=== PATIENT | female | born 1955 | race American Indian/Alaskan Native ===

== ENCOUNTER 2018-09-28 19:41 | Inpatient (IN) | payer MEDICARE ==
[2018-09-28 21:24] LABS: Basophils # (Auto) 0.1 K/mm3 (0.0-0.1); Basophils % (Auto) 0.8 % (0.0-1.8); Eosinophils # (Auto) 0.1 K/mm3 (0.0-0.4); Eosinophils % (Auto) 0.7 % (0.0-4.3); Lymphocytes # (Auto) 1.1 K/mm3 (1.2-5.4); Lymphocytes % (Auto) 8.3 % (13.4-35.0); Mean Corpuscular HGB Conc 30 % (30-34); Mean Corpuscular Volume 90 fl (79-97); Monocytes # (Auto) 0.7 K/mm3 (0.0-0.8); Monocytes % (Auto) 5.4 % (0.0-7.3); Platelet Count 346 K/mm3 (140-440); Red Blood Count 4.13 M/mm3 (3.65-5.03); Red Cell Distribution Width 17.5 % (13.2-15.2)
[2018-09-28 21:25] LABS: Hematocrit 37.1 % (30.3-42.9)
--- NOTE | 2018-09-28 21:30 | Emergency Department Report ---
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 Patient does take Eliquis for afib. She also received her dialysis yes terday as scheduled. She denies any pain, epistaxis, melena, hematochezia, or dental trauma. Patient states she has had a cough 1 month. No fever reported. patient's doctors are affiliated with [facility]. - Related Data Previous Rx's Medication Instructions Recorded Last Taken Type Albuterol Sulfate [Proair 90 mcg IH Q4HR PRN #2 [email or web address] 03/23/16 Unknown Rx Respiclick] ALBUTEROL NEB's [Proventil 0.083% 2.5 mg IH Q4HRT PRN #30 nebu 10/23/16 Unknown Rx NEBS] Calcium Carbonate [Tums 500MG CHEW] 1,000 mg PO QDAY #60 tablet 10/23/16 Unknown Rx Pantoprazole [Protonix TAB] 40 mg PO QDAY #30 tablet 10/23/16 Unknown Rx oxyCODONE /ACETAMINOPHEN [Percocet 1 tab PO Q4H PRN #30 tablet 10/23/16 Unknown Rx 5/325 mg] Allergies Allergy/AdvReac Type Severity Reaction Status Date / Time Penicillins Allergy Unknown Verified 09/28/18 19:56 ED Dental HPI - General Chief complaint: Dental/Oral Stated complaint: BLEEDING FROM MOUTH Time Seen by Provider: 09/28/18 21:02 Source: EMS Mode of arrival: Stretcher Limitations: Physical Limitation - Related Data Previous Rx's Medication Instructions Recorded Last Taken Type Albuterol Sulfate [Proair 90 mcg IH Q4HR PRN #2 aer.[email or web address] 03/23/16 Unknown Rx Respiclick] ALBUTEROL NEB's [Proventil 0.083% 2.5 mg IH Q4HRT PRN #30 nebu 10/23/16 Unknown Rx NEBS] Calcium Carbonate [Tums 500MG CHEW] 1,000 mg PO QDAY #60 tablet 10/23/16 Unknown Rx Pantoprazole [Protonix TAB] 40 mg PO QDAY #30 tablet 10/23/16 Unknown Rx oxyCODONE /ACETAMINOPHEN [Percocet 1 tab PO Q4H PRN #30 tablet 10/23/16 Unknown Rx 5/325 mg] Allergies Allergy/AdvReac Type Severity Reaction Status Date / Time Penicillins Allergy Unknown Verified 09/28/18 19:56 ED Review of Systems ROS: Stated complaint: BLEEDING FROM MOUTH Other details as noted in HPI Comment: All other systems reviewed and negative ED Past Medical Hx - Past Medical History Hx Hypertension: Yes Hx GERD: Yes Hx Renal Disease: Yes (DIALYSIS M W ) Hx Arthritis: Yes Hx Asthma: Yes Additional medical history: Home oxygen use - Surgical History Past Surgical History?: Yes Additional Surgical History: PERMA CATH LEFT THIGH - Social History Smoking Status: Never Smoker Substance Use Type: None - Medications Home Medications: Home Medications Medication Instructions Recorded Confirmed Last Taken Type Albuterol Sulfate [Proair 90 mcg IH Q4HR PRN #2 aer.[email or web address] 03/23/16 Unknown Rx Respiclick] ALBUTEROL NEB's [Proventil 0.083% 2.5 mg IH Q4HRT PRN #30 nebu 10/23/16 Unknown Rx NEBS] Calcium Carbonate [Tums 500MG CHEW] 1,000 mg PO QDAY #60 tablet 10/23/16 Unknown Rx Pantoprazole [Protonix TAB] 40 mg PO QDAY #30 tablet 10/23/16 Unknown Rx oxyCODONE /ACETAMINOPHEN [Percocet 1 tab PO Q4H PRN #30 tablet 10/23/16 Unknown Rx 5/325 mg] ED Physical Exam - General Limitations: Physical Limitation - Other Other exam information: General: No limitations, patient is alert in no acute distress Head exam: Atraumatic, normocephalic Eyes exam: Normal appearance, pupils equal reactive to light, extraocular movements intact ENT: Moist mucous membrane, patient does not have any maxillary teeth. Blood is noted on the tongue however, No gum laceration or tongue laceration noted. No bleeding to the hard or soft palate or posterior pharynx noted. No epistaxis. Neck exam: Normal inspection Respiratory exam: Clear to auscultation bilateral, no wheezes, rales, crackles Cardiovascular: Normal rate and rhythm Abdomen: Soft, nondistended, and nontender, with normal bowel sounds, no rebound, or guarding Extremity: Full range of motion normal inspection no deformity Neurologic: Alert, oriented x3, cranial nerves intact Psychiatric: normal affect, normal mood Skin: Warm, dry, intact ED Course Vital Signs 09/28/18 09/28/18 20:00 20:12 Temperature 98.9 F Pulse Rate 90 Respiratory 20 Rate Blood Pressure 115/95 [Left] O2 Sat by Pulse 91 92 Oximetry - Reevaluation(s) Reevaluation #1: 09/28/18 22:24 Soft tissue neck x-ray did not reveal a foreign body. I went to the bedside to reexamine patient. She has braided extensions and denied by rhiannon pin usage. When I examined her hair I found the rhiannon pin attached to one of her symone. I believe that this was the rhiannon pin image on initial chest x-ray and soft tissue neck x-ray does not show a foreign body. Patient reports that her oral pharyngeal bleeding has stopped. 09/28/18 23:26 respiratory precautions and isolation recommended until tb can be ruled out. pt tx with po azithromycini prior to offcial cxr report. Blood cx and levaquin ordered after read by radiologist. ED Medical Decision Making - Lab Data Result diagrams: 09/28/18 21:12 09/28/18 21:12 Lab Results 09/28/18 09/28/18 09/28/18 Range/Units 21:12 21:12 21:12 WBC 13.3 H (4.5-11.0) K/mm3 RBC 4.13 (3.65-5.03) M/mm3 Hgb 11.0 (10.1-14.3) gm/dl Hct 37.1 (30.3-42.9) % MCV 90 (79-97) fl MCH 27 L (28-32) pg MCHC 30 (30-34) % RDW 17.5 H (13.2-15.2) % Plt Count 346 (140-440) K/mm3 Lymph % (Auto) 8.3 L (13.4-35.0) % [place] % (Auto) 5.4 (0.0-7.3) % Eos % (Auto) 0.7 (0.0-4.3) % Baso % (Auto) 0.8 (0.0-1.8) % Lymph # 1.1 L (1.2-5.4) K/mm3 [place] # 0.7 (0.0-0.8) K/mm3 Eos # 0.1 (0.0-0.4) K/mm3 Baso # 0.1 (0.0-0.1) K/mm3 Seg Neutrophils % 84.8 H (40.0-70.0) % Seg Neutrophils # 11.2 H (1.8-7.7) K/mm3 PT 15.6 H (12.2-14.9) Sec. INR 1.17 H (0.87-1.13) APTT 36.5 (24.2-36.6) Sec. Sodium 134 L (137-145) mmol/L Potassium 3.3 L (3.6-5.0) mmol/L Chloride 94.0 L (98-107) mmol/L Carbon Dioxide 22 (22-30) mmol/L Anion Gap 21 mmol/L BUN 34 H (7-17) mg/dL Creatinine 6.6 H (0.7-1.2) mg/dL Estimated GFR 8 ml/min BUN/Creatinine Ratio 5 % Glucose 212 H (65-100) mg/dL Calcium 9.4 (8.4-10.2) mg/dL - Radiology Data Radiology results: report reviewed PROCEDURE: XR CHEST 1V AP TECHNIQUE: Chest radiograph single view. HISTORY: cough, dialysis pt COMPARISONS: 10/17/2016 . FINDINGS: Heart: Normal. Mediastinum/Vessels: Mildly congested. Lungs/Pleural space: Patchy left lower lobe and left upper lobe infiltrate. Lesser right upper lobe infiltrate. Patient is rotated. Bony thorax: No acute osseous abnormality. Life support devices: Right subclavian and axillary arterial stent.. IMPRESSION: Suboptimal positioning and exposure. Diffuse left-sided infiltrate. Lesser right-sided infiltrate. Patient is rotated. Right subclavian and axillary arterial stent. - Medical Decision Making plan to admit for b/l pneumonia. hospitalist informed oral bleeding has resolved tb precautions - Differential Diagnosis coagulopathy, intraoral lesion/bleeding, fb Critical Care Time: No Critical care attestation.: If time is entered above; I have spent that time in minutes in the direct care of this critically ill patient, excluding procedure time. ED Disposition Clinical Impression: Pneumonia, Bleeding from mouth, ESRD on dialysis, Anticoagulant long-term use, HTN (hypertension), On home oxygen therapy Disposition: OP ADMIT IP TO THIS HOSP Is pt being admited?: Yes Condition: Stable Time of Disposition: 23:26 (DR Worrell/hosp)
[2018-09-28 21:34] LABS: INR 1.17 (0.87-1.13)
[2018-09-28 21:35] LABS: Partial Thromboplastin Time 36.5 Sec. (24.2-36.6)
[2018-09-28 21:44] LABS: Calcium 9.4 mg/dL (8.4-10.2)
[2018-09-28] MEDS ORDERED: TESSALON PERLES PO ONE (22:24)
[2018-09-28] MEDS ORDERED: ZITHROMAX PO ONE (22:24)
--- NOTE | 2018-09-28 23:07 | XRay Report ---
PROCEDURE: XR CHEST 1V AP TECHNIQUE: Chest radiograph single view. HISTORY: cough, dialysis pt COMPARISONS: 10/17/2016 . FINDINGS: Heart: Normal. Mediastinum/Vessels: Mildly congested. Lungs/Pleural space: Patchy left lower lobe and left upper lobe infiltrate. Lesser right upper lobe infiltrate. Patient is rotated. Bony thorax: No acute osseous abnormality. Life support devices: Right subclavian and axillary arterial stent.. IMPRESSION: Suboptimal positioning and exposure. Diffuse left-sided infiltrate. Lesser right-sided infiltrate. Patient is rotated. Right subclavian and axillary arterial stent. This document is electronically signed by Alia Raya MD., Sep 28 2018 11:06:06 PM ET
[2018-09-28] MEDS ORDERED: LEVAQUIN 750MG/150ML 750 MG/150 ML BAG IV ONE (23:18)
[2018-09-29] MEDS ORDERED: MILK OF MAGNESIA PO PRN (00:02)
[2018-09-29] MEDS ORDERED: ZOFRAN IV PRN (00:02)
[2018-09-29] MEDS ORDERED: TYLENOL PO PRN (00:02)
[2018-09-29] MEDS ORDERED: SODIUM CHLORIDE FLUSH SYRINGE 10 ML IV PRN (00:02)
--- NOTE | 2018-09-29 00:14 | XRay Report ---
PROCEDURE: XR NECK SOFT TISSUE TECHNIQUE: Soft tissue neck radiographs, 2 views, including AP and lateral. HISTORY: blood in mouth ? FB on cxr COMPARISONS: None . FINDINGS: Bone mineralization: Normal . Alignment: Normal . Soft tissues: Epiglottis and hypopharyngeal soft tissues normal . Foreign bodies: None . IMPRESSION: There is no airway compromise. The trachea is midline and patent. The epiglottis is unre markable. No foreign body is identified. . This document is electronically signed by Killian York MD., Sep 29 2018 12:12:16 AM ET
--- NOTE | 2018-09-29 00:14 | History and Physical Report ---
<NANCY VELEZ - Last Filed: 09/29/18 04:31> History of Present Illness Date of examination: 09/28/18 Date of admission: 09/28/2018 Chief complaint: Cough 1 month History of present illness: Patient is a 62 obese female with PMHx of hypertension, ESRD on HD (MWF), history of DVT (on Eliquis), COPD (home oxygen dependent 2-2.5 L), who presents to the ER with complaints of cough 1 month. Patient's states that she had been coughing for a month, it is a productive cough with white phlegm. Patient states she woke up this morning with blood in her mouth, it is a moderate amount, she denied any tooth trauma, denies any sore throat. Patient says that she has been having low-grade fever during dialysis, her temperature has been 99 .3% F. She denies pain, she denies ill contact, denies epistaxis, denies melena, edema hematochezia, patient denies any trauma. A chest x-ray was done in the ER which showed diffuse bilateral infiltrate left worse than right. Patient is admitted, she was placed in droplet and airborn precaution to r/o TB and treatment for CAP protocol was initiated. Past History Past Medical History: cancer, diabetes, hypertension, hyperlipidemia, other (obesity) Past Surgical History: No surgical history Social history: no significant social history Family history: no significant family history Medications and Allergies Allergies Allergy/AdvReac Type Severity Reaction Status Date / Time Penicillins Allergy Unknown Verified 09/28/18 19:56 Home Medications Medication Instructions Recorded Confirmed Last Taken Type Apixaban [Eliquis] 1 tab PO Q12HR 09/29/18 09/29/18 Unknown History Ascorbic Acid [Vitamin C] 500 mg PO QDAY 09/29/18 09/29/18 Unknown History Aspirin 325 mg PO QDAY 09/29/18 09/29/18 Unknown History Diclofenac Sodium 75 mg PO BID 09/29/18 09/29/18 Unknown History Midodrine [Proamatine] 10 mg PO TID 09/29/18 09/29/18 Unknown History Multivit with Calcium,Iron,Min 1 each PO DAILY 09/29/18 09/29/18 Unknown History [One Daily Women's] [place]-3/Dha/Epa/Fish Oil [[place] 3 1 tab PO DAILY 09/29/18 09/29/18 Unknown History 500 Softgel] Sevelamer Carbonate [Renvela] 2,400 mg PO TIDWM 09/29/18 09/29/18 Unknown History guaiFENesin/DEXTROMETHORPHAN 118 ml PO BID PRN 09/29/18 09/29/18 Unknown History [Children's Mucinex Cough Liq] Active Meds: Active Medications Acetaminophen (Tylenol) 650 mg PO Q4H PRN PRN Reason: Pain MILD(1-3)/Fever >100.5/ALMEIDA Famotidine (Pepcid) 20 mg IV BID DINO Heparin Sodium (Porcine) (Heparin) 5,000 unit SUB-Q Q8HR DINO Levofloxacin/Dextrose (Levaquin 750mg/150ml) 750 mg in 150 mls @ 100 mls/hr IV ONCE ONE Stop: 09/29/18 00:47 Azithromycin 500 mg/ Sodium (Chloride) 250 mls @ 250 mls/hr IV Q24HR DINO Levofloxacin/Dextrose (Levaquin 750mg/150ml) 750 mg in 150 mls @ 100 mls/hr IV Q24HR DINO; Protocol Magnesium Hydroxide (Milk Of Magnesia) 30 ml PO Q4H PRN PRN Reason: Constipation Ondansetron HCl (Zofran) 4 mg IV Q8H PRN PRN Reason: Nausea And Vomiting Sodium Chloride (Sodium Chloride Flush Syringe 10 Ml) 10 ml IV BID DINO Sodium Chloride (Sodium Chloride Flush Syringe 10 Ml) 10 ml IV PRN PRN PRN Reason: LINE FLUSH Review of Systems Cardiovascular: chest pain Respiratory: cough Musculoskeletal: muscle cramps Exam - Constitutional Vitals: Temp Pulse Resp BP Pulse Ox 98.9 F 90 20 115/95 92 09/28/18 20:00 09/28/18 20:00 09/28/18 20:00 09/28/18 20:00 09/28/18 20:12 General appearance: Present: no acute distress - EENT Eyes: Present: EOM intact ENT: hearing intact - Neck Neck: Present: normal ROM - Respiratory Respiratory effort: normal Respiratory: bilateral: CTA - Cardiovascular Rhythm: regular Heart Sounds: Present: S1 & S2 - Extremities Extremities: No edema Peripheral Pulses: within normal limits - Abdominal General gastrointestinal: Present: soft, non-tender Female genitourinary: Present: deferred - Rectal Rectal Exam: deferred - Integumentary Integumentary: Present: clear, warm, dry - Musculoskeletal Musculoskeletal: strength equal bilaterally - Psychiatric Psychiatric: appropriate mood/affect - Neurologic Neurologic: moves all extremities Results - Labs CBC & Chem 7: 09/28/18 21:12 09/28/18 21:12 Labs: Laboratory Last Values WBC 13.3 K/mm3 (4.5-11.0) H 09/28/18 21:12 RBC 4.13 M/mm3 (3.65-5.03) 09/28/18 21:12 Hgb 11.0 gm/dl (10.1-14.3) 09/28/18 21:12 Hct 37.1 % (30.3-42.9) 09/28/18 21:12 MCV 90 fl (79-97) 09/28/18 21:12 MCH 27 pg (28-32) L 09/28/18 21:12 MCHC 30 % (30-34) 09/28/18 21:12 RDW 17.5 % (13.2-15.2) H 09/28/18 21:12 Plt Count 346 K/mm3 (140-440) 09/28/18 21:12 Lymph % (Auto) 8.3 % (13.4-35.0) L 09/28/18 21:12 [place] % (Auto) 5.4 % (0.0-7.3) 09/28/18 21:12 Eos % (Auto) 0.7 % (0.0-4.3) 09/28/18 21:12 Baso % (Auto) 0.8 % (0.0-1.8) 09/28/18 21:12 Lymph # 1.1 K/mm3 (1.2-5.4) L 09/28/18 21:12 [place] # 0.7 K/mm3 (0.0-0.8) 09/28/18 21:12 Eos # 0.1 K/mm3 (0.0-0.4) 09/28/18 21:12 Baso # 0.1 K/mm3 (0.0-0.1) 09/28/18 21:12 Seg Neutrophils % 84.8 % (40.0-70.0) H 09/28/18 21:12 Seg Neutrophils # 11.2 K/mm3 (1.8-7.7) H 09/28/18 21:12 PT 15.6 Sec. (12.2-14.9) H 09/28/18 21:12 INR 1.17 (0.87-1.13) H 09/28/18 21:12 APTT 36.5 Sec. (24.2-36.6) 09/28/18 21:12 Sodium 134 mmol/L (137-145) L 09/28/18 21:12 Potassium 3.3 mmol/L (3.6-5.0) L 09/28/18 21:12 Chloride 94.0 mmol/L (98-107) L 09/28/18 21:12 Carbon Dioxide 22 mmol/L (22-30) 09/28/18 21:12 21 mmol/L 09/28/18 21:12 BUN 34 mg/dL (7-17) H 09/28/18 21:12 6.6 mg/dL (0.7-1.2) H 09/28/18 21:12 Estimated GFR 8 ml/min 09/28/18 21:12 5 % 09/28/18 21:12 Glucose 212 mg/dL (65-100) H 09/28/18 21:12 Calcium 9.4 mg/dL (8.4-10.2) 09/28/18 21:12 Assessment and Plan Assessment and plan: 1. Bilateral pneumonia (CAP) 2. Cough/Hemoptysis 3. History of DVT (is on adequate use) 4. ESRD on HD 5. History of hypertension 6. History of COPD/asthma (home O2 dependent) 7. History of arthritis (debilitating) 8. Hypokalemia 9. Morbid obesity 10. Debilitating/gait instability Plan. Patient is admitted for acute pneumonia Non-ICU pneumonia protocol initiated (Levaquin and Ceftrioxone) AFB culture 3 (to rule out TB) Droplet/airborn precaution Resume home meds Keep O2 at 2 L to keep sats greater than 93% Supportive care Tessalon PRN for cough Duonebs treatment Q6hrs for SOB Consult nephrology chief information officer for HD management No DVT prophylaxis (on Eliquis) Contraindication Mechanical VTE Prophylaxis: Contraindicated Plan of care discussed with patient/family: Yes <BRONWYN VALIENTE Last Filed: 09/30/18 03:15> History of Present Illness Date of admission: 09/28/18 23:47 Medications and Allergies Active Meds: Active Medications Acetaminophen (Tylenol) 650 mg PO Q4H PRN PRN Reason: Pain MILD(1-3)/Fever >100.5/ALMEIDA Albumin Human (Alburx 25% (Albumin)) 25 gm IV FLAVIA PRN PRN Reason: Hypotension Albuterol/Ipratropium (Duoneb *Not For Prn Use*) 1 ampul IH Q6HRT [facility] Last Admin: 09/30/18 01:47 Dose: 1 ampul Documented by: Benzonatate (Tessalon Perles) 200 mg PO Q8HR [facility] Last Admin: 09/29/18 23:46 Dose: 200 mg Documented by: Epoetin Eber (Procrit) 10,000 unit IV FLAVIA PRN PRN Reason: hemodialysis Last Admin: 09/29/18 16:12 Dose: 10,000 unit Documented by: Famotidine (Pepcid) 20 mg IV QAM [facility] Last Admin: 09/29/18 10:19 Dose: 20 mg Documented by: Heparin Sodium (Porcine) (Heparin) 5,000 unit SUB-Q Q8HR [facility] Last Admin: 09/29/18 23:46 Dose: 5,000 unit Documented by: Azithromycin 500 mg/ Sodium (Chloride) 250 mls @ 250 mls/hr IV Q24HR [facility] Last Admin: 09/29/18 17:27 Dose: 250 mls/hr Documented by: Levofloxacin/Dextrose (Levaquin 500mg/100ml) 500 mg in 100 mls @ 100 mls/hr IV Q48HR [facility] Last Admin: 09/29/18 10:19 Dose: 100 mls/hr Documented by: Sodium Chloride (Nacl 0.9%) 100 mls @ 999 mls/hr IV FLAVIA PRN PRN Reason: Hypotension Midodrine (Proamatine) 10 mg PO TID@0800,1200,1600 [facility] Last Admin: 09/29/18 17:13 Dose: 10 mg Documented by: Ondansetron HCl (Zofran) 4 mg IV Q8H PRN PRN Reason: Nausea And Vomiting Sodium Chloride (Sodium Chloride Flush Syringe 10 Ml) 10 ml IV BID DINO Last Admin: 09/29/18 23:47 Dose: 10 ml Documented by: Sodium Chloride (Sodium Chloride Flush Syringe 10 Ml) 10 ml IV PRN PRN PRN Reason: LINE FLUSH Exam - Constitutional Vitals: Temp Pulse Resp BP Pulse Ox 97.7 F 79 17 50/23 90 09/29/18 22:20 09/30/18 01:55 09/30/18 01:55 09/29/18 22:20 09/29/18 22:20 Results - Labs CBC & Chem 7: 09/28/18 21:12 09/28/18 21:12 Labs: Laboratory Last Values WBC 13.3 K/mm3 (4.5-11.0) H 09/28/18 21:12 RBC 4.13 M/mm3 (3.65-5.03) 09/28/18 21:12 Hgb 11.0 gm/dl (10.1-14.3) 09/28/18 21:12 Hct 37.1 % (30.3-42.9) 09/28/18 21:12 MCV 90 fl (79-97) 09/28/18 21:12 MCH 27 pg (28-32) L 09/28/18 21:12 MCHC 30 % (30-34) 09/28/18 21:12 RDW 17.5 % (13.2-15.2) H 09/28/18 21:12 Plt Count 346 K/mm3 (140-440) 09/28/18 21:12 Lymph % (Auto) 8.3 % (13.4-35.0) L 09/28/18 21:12 [place] % (Auto) 5.4 % (0.0-7.3) 09/28/18 21:12 Eos % (Auto) 0.7 % (0.0-4.3) 09/28/18 21:12 Baso % (Auto) 0.8 % (0.0-1.8) 09/28/18 21:12 Lymph # 1.1 K/mm3 (1.2-5.4) L 09/28/18 21:12 [place] # 0.7 K/mm3 (0.0-0.8) 09/28/18 21:12 Eos # 0.1 K/mm3 (0.0-0.4) 09/28/18 21:12 Baso # 0.1 K/mm3 (0.0-0.1) 09/28/18 21:12 Seg Neutrophils % 84.8 % (40.0-70.0) H 09/28/18 21:12 Seg Neutrophils # 11.2 K/mm3 (1.8-7.7) H 09/28/18 21:12 PT 15.6 Sec. (12.2-14.9) H 09/28/18 21:12 INR 1.17 (0.87-1.13) H 09/28/18 21:12 APTT 36.5 Sec. (24.2-36.6) 09/28/18 21:12 Sodium 134 mmol/L (137-145) L 09/28/18 21:12 Potassium 3.3 mmol/L (3.6-5.0) L 09/28/18 21:12 Chloride 94.0 mmol/L (98-107) L 09/28/18 21:12 Carbon Dioxide 22 mmol/L (22-30) 09/28/18 21:12 21 mmol/L 09/28/18 21:12 BUN 34 mg/dL (7-17) H 09/28/18 21:12 6.6 mg/dL (0.7-1.2) H 09/28/18 21:12 Estimated GFR 8 ml/min 09/28/18 21:12 5 % 09/28/18 21:12 Glucose 212 mg/dL (65-100) H 09/28/18 21:12 Calcium 9.4 mg/dL (8.4-10.2) 09/28/18 21:12 Hepatitis A IgM Ab Non-reactive (NonReactive) 09/29/18 15:51 Hep Bs Antigen Non-reactive (Negative) 09/29/18 15:51 Hep B Core IgM Ab Non-reactive (NonReactive) 09/29/18 15:51 Non-reactive (NonReactive) 09/29/18 15:51 Assessment and Plan Assessment and plan: I personally discussed the patient with the RETAIL MARKETING COORDINATOR-C. I agree with the above assessment and plan
[2018-09-29] MEDS ORDERED: LEVAQUIN 750MG/150ML 750 MG/150 ML BAG IV ONE ×2 (00:31→10:00)
[2018-09-29] MEDS ORDERED: PROVENTIL IH PRN (04:25)
[2018-09-29] MEDS ORDERED: ATROVENT IH PRN (04:25)
[2018-09-29] MEDS: HEPARIN SUB-Q SCH ×3 (05:44→23:46)
[2018-09-29] MEDS: TESSALON PERLES PO SCH ×3 (05:45→23:46)
[2018-09-29] MEDS ORDERED: PROAMATINE PO ONE ×2 (06:11→23:58)
[2018-09-29] MEDS: DUONEB *Not for PRN Use IH SCH ×3 (09:46→19:39)
[2018-09-29] MEDS ORDERED: LEVAQUIN 750MG/150ML 750 MG/150 ML BAG IV SCH (10:00)
[2018-09-29] MEDS ORDERED: ROCEPHIN/NS 2 GM/100 ML 2 GM/100 ML BAG IV SCH (10:00)
[2018-09-29] MEDS: LEVAQUIN 500MG/100ML 500 MG/100 ML BAG IV SCH (10:19)
[2018-09-29] MEDS: PEPCID IV SCH (10:19)
--- NOTE | 2018-09-29 11:08 | Consultation ---
History of Present Illness - Reason for Consult Consult date: 09/29/18 end stage renal disease Requesting physician: HALEY EASTMAN - History of Present Illness Patient is a 62 obese female with PMHx of hypertension, ESRD on HD (MWF), history of DVT (on Eliquis), COPD (home oxygen dependent 2-2.5 L), who presents to the ER with complaints of cough 1 month. Patient's states that she had been coughing for a month, it is a productive cough with white phlegm. Patient states she woke up this morning with blood in her mouth, it is a moderate amount, she denied any tooth trauma, denies any sore throat. Patient says that she has been having low-grade fever during dialysis, her temperature has been 99.3% F. She denies pain, she denies ill contact, denies epistaxis, denies melena, edema hematochezia, patient denies any trauma. A chest x-ray was done in the ER which showed diffuse bilateral infiltrate left worse than right. Patient is admitted, she was placed in droplet and airborn precaution to r/o TB and treatment for CAP protocol was initiated. Past History Past Medical History: cancer, diabetes, hypertension, hyperlipidemia, other (obesity) Past Surgical History: No surgical history Social history: no significant social history Family history: no significant family history Review of Systems Cardiovascular: chest pain Respiratory: cough Musculoskeletal: muscle cramps Past History Past Medical History: cancer, diabetes, hypertension, hyperlipidemia, other (obesity) Past Surgical History: No surgical history Social history: no significant social history Family history: no significant family history Medications and Allergies Allergies Allergy/AdvReac Type Severity Reaction Status Date / Time Penicillins Allergy Unknown Verified 09/28/18 19:56 Home Medications Medication Instructions Recorded Confirmed Last Taken Type Apixaban [Eliquis] 1 tab PO Q12HR 09/29/18 09/29/18 Unknown History Ascorbic Acid [Vitamin C] 500 mg PO QDAY 09/29/18 09/29/18 Unknown History Aspirin 325 mg PO QDAY 09/29/18 09/29/18 Unknown History Diclofenac Sodium 75 mg PO BID 09/29/18 09/29/18 Unknown History Midodrine [Proamatine] 10 mg PO TID 09/29/18 09/29/18 Unknown History Multivit with Calcium,Iron,Min 1 each PO DAILY 09/29/18 09/29/18 Unknown History [One Daily Women's] [place]-3/Dha/Epa/Fish Oil [[place] 3 1 tab PO DAILY 09/29/18 09/29/18 Unknown History 500 Softgel] Sevelamer Carbonate [Renvela] 2,400 mg PO TIDWM 09/29/18 09/29/18 Unknown History guaiFENesin/DEXTROMETHORPHAN 118 ml PO BID PRN 09/29/18 09/29/18 Unknown History [Children's Mucinex Cough Liq] Active Meds: Active Medications Acetaminophen (Tylenol) 650 mg PO Q4H PRN PRN Reason: Pain MILD(1-3)/Fever >100.5/ALMEIDA Albuterol/Ipratropium (Duoneb *Not For Prn Use*) 1 ampul IH Q6HRT [facility] Last Admin: 09/29/18 09:46 Dose: 1 ampul Documented by: Benzonatate (Tessalon Perles) 200 mg PO Q8HR [facility] Last Admin: 09/29/18 05:45 Dose: 200 mg Documented by: Famotidine (Pepcid) 20 mg IV QAM [facility] Last Admin: 09/29/18 10:19 Dose: 20 mg Documented by: Heparin Sodium (Porcine) (Heparin) 5,000 unit SUB-Q Q8HR [facility] Last Admin: 09/29/18 05:44 Dose: 5,000 unit Documented by: Azithromycin 500 mg/ Sodium (Chloride) 250 mls @ 250 mls/hr IV Q24HR [facility] Levofloxacin/Dextrose (Levaquin 500mg/100ml) 500 mg in 100 mls @ 100 mls/hr IV Q48HR [facility] Last Admin: 09/29/18 10:19 Dose: 100 mls/hr Documented by: Magnesium Hydroxide (Milk Of Magnesia) 30 ml PO Q4H PRN PRN Reason: Constipation Ondansetron HCl (Zofran) 4 mg IV Q8H PRN PRN Reason: Nausea And Vomiting Sodium Chloride (Sodium Chloride Flush Syringe 10 Ml) 10 ml IV BID DINO Sodium Chloride (Sodium Chloride Flush Syringe 10 Ml) 10 ml IV PRN PRN PRN Reason: LINE FLUSH Exam - Vital Signs Vital signs: Vital Signs Temp Pulse Resp BP Pulse Ox 98.9 F 90 20 115/95 91 09/28/18 20:00 09/28/18 20:00 09/28/18 20:00 09/28/18 20:00 09/28/18 20:00 - Physical Exam Narrative exam: General appearance: Present: no acute distress - EENT Eyes: Present: EOM intact ENT: hearing intact - Neck Neck: Present: normal ROM - Respiratory Respiratory effort: normal Respiratory: bilateral: CTA - Cardiovascular Rhythm: regular Heart Sounds: Present: S1 & S2 - Extremities Extremities: No edema Peripheral Pulses: within normal limits - Abdominal General gastrointestinal: Present: soft, non-tender Female genitourinary: Present: deferred - Rectal Rectal Exam: deferred - Integumentary Integumentary: Present: clear, warm, dry - Musculoskeletal Musculoskeletal: strength equal bilaterally - Psychiatric Psychiatric: appropriate mood/affect - Neurologic Neurologic: moves all extremities Results - Lab Results 09/28/18 21:12 09/28/18 21:12 Most recent lab results Calcium 9.4 mg/dL (8.4-10.2) 09/28/18 21:12 Assessment and Plan Impression: * ESRD * PNA * HTN * ANemia in ESRD * Asthma/COPD * hypocalcemia * hyperparathyroidism Plan: * HD q MWF and prn * uf with hd as tolerated * midodrine 5mg q day * continue po tums * calcium is better * strict i/o * renal diet * chest pain management per primary team
[2018-09-29] MEDS ORDERED: PROCRIT IV PRN (11:11)
[2018-09-29] MEDS ORDERED: NACL 0.9% 100 ML IV PRN (11:11)
[2018-09-29] MEDS ORDERED: ALBURX 25% (ALBUMIN) IV PRN (11:11)
[2018-09-29] MEDS: ZITHROMAX 500 MG in NACL 0.9% 250ML 250 ML IV SCH ×3 (11:30→17:27)
[2018-09-29] MEDS: PROAMATINE PO SCH ×2 (11:49→17:13)
[2018-09-29] MEDS: SODIUM CHLORIDE FLUSH SYRINGE 10 ML IV SCH ×2 (14:29→23:47)
--- NOTE | 2018-09-29 17:03 | Progress Note ---
Assessment and Plan - Patient Problems (1) Bilateral pneumonia Current Visit: Yes Status: Acute Plan to address problem: Possible community-acquired pneumonia On Levaquin Isolation Rule out pulmonary tuberculosis ID consult to be requested Nebulizer treatments (2) ESRD on dialysis Current Visit: Yes Status: Chronic Plan to address problem: Hemodialysis to continue Nephrology consult requested (3) Morbid obesity Current Visit: No Status: Chronic Plan to address problem: Patient to follow with the bariatric surgery as outpatient (4) Hypotension Current Visit: Yes Status: Chronic Qualifiers: Hypotension type: unspecified hypotension type Qualified Code(s): I95.9 - Hypotension, unspecified Plan to address problem: On midodrine (5) Anticoagulation adequate Current Visit: Yes Status: Chronic Plan to address problem: On Eliqius for prevention of DVTs and PEs (6) Hypokalemia Current Visit: Yes Status: Acute Plan to address problem: Supplemented (7) DVT prophylaxis Current Visit: Yes Status: Acute Plan to address problem: On anticoagulation and GI prophylaxis Subjective Date of service: 09/29/18 Principal diagnosis: bilateral pneumonia, end-stage renal disease on dialysis Interval history: 62-year-old -[place] female with history of end-stage renal disease, DVT, COPD-oxygen dependent and presented to the emergency room with cough of one month duration. Patient was found to have bilateral pulmonary infiltrates and also some hemoptysis. Patient being evaluated for pulmonary tuberculosis Objective - Constitutional Vitals: Vital Signs - 12hr 09/29/18 09/29/18 09/29/18 05:50 08:02 08:06 Temperature 97.7 F Pulse Rate 71 73 Pulse Rate [ Anterior Bilateral Throughout] Respiratory 24 Rate Respiratory Rate [Anterior Bilateral Throughout] Blood Pressure 69/32 84/26 O2 Sat by Pulse 100 Oximetry 09/29/18 09/29/18 09/29/18 09:46 09:56 12:55 Temperature 97.7 F Pulse Rate 81 Pulse Rate [ 85 89 Anterior Bilateral Throughout] Respiratory 24 Rate Respiratory 18 18 Rate [Anterior Bilateral Throughout] Blood Pressure 102/45 O2 Sat by Pulse 99 Oximetry 09/29/18 09/29/18 09/29/18 13:15 13:30 13:45 Temperature Pulse Rate 77 98 H 82 Pulse Rate [ Anterior Bilateral Throughout] Respiratory Rate Respiratory Rate [Anterior Bilateral Throughout] Blood Pressure 135/45 94/80 103/42 O2 Sat by Pulse Oximetry 09/29/18 09/29/18 09/29/18 14:00 14:15 14:30 Temperature Pulse Rate 86 83 84 Pulse Rate [ Anterior Bilateral Throughout] Respiratory Rate Respiratory Rate [Anterior Bilateral Throughout] Blood Pressure 118/46 92/37 85/32 O2 Sat by Pulse Oximetry 09/29/18 09/29/18 09/29/18 14:45 15:00 15:15 Temperature Pulse Rate 81 84 87 Pulse Rate [ Anterior Bilateral Throughout] Respiratory Rate Respiratory Rate [Anterior Bilateral Throughout] Blood Pressure 90/34 94/39 102/44 O2 Sat by Pulse Oximetry 09/29/18 09/29/18 09/29/18 15:30 15:45 16:00 Temperature Pulse Rate 97 H 90 89 Pulse Rate [ Anterior Bilateral Throughout] Respiratory Rate Respiratory Rate [Anterior Bilateral Throughout] Blood Pressure 95/35 83/39 86/31 O2 Sat by Pulse Oximetry 09/29/18 16:33 Temperature 97.7 F Pulse Rate 84 Pulse Rate [ Anterior Bilateral Throughout] Respiratory 24 Rate Respiratory Rate [Anterior Bilateral Throughout] Blood Pressure 88/83 O2 Sat by Pulse Oximetry General appearance: Present: no acute distress, well-nourished - EENT Eyes: PERRL, EOM intact ENT: hearing intact, clear oral mucosa Ears: bilateral: normal - Neck Neck: supple, normal ROM - Respiratory Respiratory effort: normal Respiratory: bilateral: CTA, rales (scattered) - Breasts Breasts: deferred, normal - Cardiovascular Rhythm: regular Heart Sounds: Present: S1 & S2. Absent: gallop, rub Extremities: no ischemia, pulses intact, No edema, normal color, Full ROM - Gastrointestinal General gastrointestinal: Present: soft, non-tender, non-distended, normal bowel sounds Rectal Exam: deferred - Genitourinary Female genitourinary: normal - Integumentary Integumentary: clear, warm, dry - Musculoskeletal Musculoskeletal: 1, strength equal bilaterally - Neurologic Neurologic: moves all extremities - Psychiatric Psychiatric: memory intact, appropriate mood/affect, intact judgment & insight - Labs CBC & Chem 7: 09/30/18 06:01 09/30/18 06:01 Labs: Abnormal lab results 09/28/18 09/28/18 09/28/18 Range/Units 21:12 21:12 21:12 WBC 13.3 H (4.5-11.0) K/mm3 MCH 27 L (28-32) pg RDW 17.5 H (13.2-15.2) % Lymph % (Auto) 8.3 L (13.4-35.0) % Lymph # 1.1 L (1.2-5.4) K/mm3 Seg Neutrophils % 84.8 H (40.0-70.0) % Seg Neutrophils # 11.2 H (1.8-7.7) K/mm3 PT 15.6 H (12.2-14.9) Sec. INR 1.17 H (0.87-1.13) Sodium 134 L (137-145) mmol/L Potassium 3.3 L (3.6-5.0) mmol/L Chloride 94.0 L (98-107) mmol/L BUN 34 H (7-17) mg/dL Creatinine 6.6 H (0.7-1.2) mg/dL Glucose 212 H (65-100) mg/dL Chest x-ray IMPRESSION: Suboptimal positioning and exposure. Diffuse left-sided infiltrate. Lesser right-sided infiltrate. Patient is rotated. Right subclavian and axillary arterial stent. This document is electronically signed by Alia Raya MD., Sep 28 2018 11:06:06 PM ET - Imaging and cardiology Chest x-ray: report reviewed
[2018-09-29 17:15] LABS: Hepatitis B Surface Antigen Non-Reactive (Negative); Hepatitis C Virus Antibody Non-Reactive (NonReactive)
[2018-09-29] MEDS ORDERED: APLISOL ID ONE (19:30)
[2018-09-30] MEDS: DUONEB *Not for PRN Use IH SCH ×4 (01:47→20:08)
[2018-09-30] MEDS ORDERED: NACL 0.9% 250ML 250 ML IV ONE (03:00)
[2018-09-30] MEDS: TESSALON PERLES PO SCH ×3 (05:19→22:37)
[2018-09-30] MEDS: HEPARIN SUB-Q SCH (05:20)
[2018-09-30 06:56] LABS: Basophils # (Auto) 0.2 K/mm3 (0.0-0.1); Eosinophils # (Auto) 0.1 K/mm3 (0.0-0.4); Eosinophils % (Auto) 1.5 % (0.0-4.3); Hematocrit 35.1 % (30.3-42.9); Hemoglobin 10.8 gm/dl (10.1-14.3); Lymphocytes # (Auto) 1.2 K/mm3 (1.2-5.4); Lymphocytes % (Auto) 13.5 % (13.4-35.0); Mean Corpuscular HGB Conc 31 % (30-34); Mean Corpuscular Volume 89 fl (79-97); Monocytes # (Auto) 0.7 K/mm3 (0.0-0.8); Monocytes % (Auto) 7.4 % (0.0-7.3); Platelet Count 267 K/mm3 (140-440); Red Blood Count 3.96 M/mm3 (3.65-5.03); Red Cell Distribution Width 17.3 % (13.2-15.2)
[2018-09-30 07:12] LABS: Albumin 3.4 g/dL (3.9-5)
[2018-09-30] MEDS: PROAMATINE PO SCH ×3 (08:44→16:27)
[2018-09-30] MEDS ORDERED: LEVAQUIN 500MG/100ML 500 MG/100 ML BAG IV SCH (10:00)
[2018-09-30] MEDS: PEPCID IV SCH (10:15)
[2018-09-30] MEDS: SODIUM CHLORIDE FLUSH SYRINGE 10 ML IV SCH ×2 (10:15→22:39)
[2018-09-30] MEDS: ZITHROMAX 500 MG in NACL 0.9% 250ML 250 ML IV SCH (11:07)
[2018-09-30] MEDS ORDERED: GUAIFENESIN PO PRN (12:51)
[2018-09-30] MEDS ORDERED: DEXTROMETHORPHAN PO PRN (12:51)
--- NOTE | 2018-09-30 13:16 | Progress Note ---
Assessment and Plan - Patient Problems (1) Bilateral pneumonia Current Visit: Yes Status: Acute Plan to address problem: Possible community-acquired pneumonia On Levaquin Isolation Rule out pulmonary tuberculosis ID consult to be requested Nebulizer treatments (2) ESRD on dialysis Current Visit: Yes Status: Chronic Plan to address problem: Hemodialysis to continue Nephrology consult requested (3) Morbid obesity Current Visit: No Status: Chronic Plan to address problem: Patient to follow with the bariatric surgery as outpatient (4) Hypotension Current Visit: Yes Status: Chronic Qualifiers: Hypotension type: unspecified hypotension type Qualified Code(s): I95.9 - Hypotension, unspecified Plan to address problem: On midodrine (5) Anticoagulation adequate Current Visit: Yes Status: Chronic Plan to address problem: On Eliqius for prevention of DVTs and PEs (6) Hypokalemia Current Visit: Yes Status: Acute Plan to address problem: Supplemented (7) DVT prophylaxis Current Visit: Yes Status: Acute Plan to address problem: On anticoagulation and GI prophylaxis Subjective Date of service: 09/30/18 Principal diagnosis: bilateral pneumonia, end-stage renal disease on dialysis Interval history: 62-year-old -[place] female with history of end-stage renal disease, DVT, COPD-oxygen dependent and presented to the emergency room with cough of one month duration. Patient was found to have bilateral pulmonary infiltrates and also some hemoptysis. Patient being evaluated for pulmonary tuberculosis Symptomatically better Objective - Constitutional Vitals: Vital Signs - 12hr 09/30/18 09/30/18 09/30/18 01:47 01:55 03:44 Temperature 97.8 F Pulse Rate 81 Pulse Rate [ 77 79 Anterior Bilateral Throughout] Respiratory 18 Rate Respiratory 17 17 Rate [Anterior Bilateral Throughout] Blood Pressure 87/24 O2 Sat by Pulse 100 Oximetry 09/30/18 11:05 Temperature 98.7 F Pulse Rate 78 Pulse Rate [ Anterior Bilateral Throughout] Respiratory 20 Rate Respiratory Rate [Anterior Bilateral Throughout] Blood Pressure 88/45 O2 Sat by Pulse 92 Oximetry General appearance: Present: no acute distress, well-nourished - EENT Eyes: PERRL, EOM intact ENT: hearing intact, clear oral mucosa Ears: bilateral: normal - Neck Neck: supple, normal ROM - Respiratory Respiratory effort: normal Respiratory: bilateral: CTA, rales (scattered) - Breasts Breasts: normal - Cardiovascular Rhythm: regular Heart Sounds: Present: S1 & S2. Absent: gallop, rub Extremities: no ischemia, pulses intact, No edema, normal color, Full ROM - Gastrointestinal General gastrointestinal: Present: soft, non-tender, non-distended, normal bowel sounds Rectal Exam: deferred - Genitourinary Female genitourinary: normal - Integumentary Integumentary: clear, warm, dry - Musculoskeletal Musculoskeletal: 1, strength equal bilaterally - Neurologic Neurologic: moves all extremities - Psychiatric Psychiatric: memory intact, appropriate mood/affect, intact judgment & insight - Labs CBC & Chem 7: 09/30/18 06:01 09/30/18 06:01 Labs: Abnormal lab results 09/30/18 09/30/18 Range/Units 06:01 06:01 MCH 27 L (28-32) pg RDW 17.3 H (13.2-15.2) % [place] % (Auto) 7.4 H (0.0-7.3) % Baso % (Auto) 2.0 H (0.0-1.8) % Baso # 0.2 H (0.0-0.1) K/mm3 Seg Neutrophils % 75.6 H (40.0-70.0) % Potassium 3.4 L (3.6-5.0) mmol/L Chloride 96.7 L (98-107) mmol/L BUN 20 H (7-17) mg/dL Creatinine 5.0 H (0.7-1.2) mg/dL Glucose 109 H (65-100) mg/dL Alkaline Phosphatase 150 H (35-129) units/L Total Protein 8.3 H (6.3-8.2) g/dL Albumin 3.4 L (3.9-5) g/dL
[2018-09-30] MEDS ORDERED: K-DUR PO ONE (14:00)
[2018-09-30] MEDS ORDERED: PROAMATINE PO SCH (14:00)
--- NOTE | 2018-09-30 15:35 | Progress Note ---
Assessment and Plan - Patient Problems (1) ESRD on hemodialysis Current Visit: No Status: Chronic Plan to address problem: End-stage renal disease on hemodialysis Dialysis access: Left thigh PermCath Next dialysis Tuesday (2) Pneumonia Current Visit: Yes Status: Acute Plan to address problem: Pneumonia on precautions to rule out tuberculous Continue antibiotics (3) Anemia Current Visit: Yes Status: Acute Plan to address problem: Mild anemia secondary to renal failure hemoglobin 10 g per DL Monitor CBC. (4) Hypokalemia Current Visit: Yes Status: Acute Plan to address problem: Hypokalemia K: 3.4 - mild -no need to replace. Subjective Principal diagnosis: bilateral pneumonia, end-stage renal disease on dialysis Interval history: 63-year-old lady with estimated orders on hemodialysis Tuesday at [facility] via a left thigh tunneled catheter admitted with complaints of cough for a month currently on work up to exclude tuberculosis She is doing well today and denies any orthopnea PND Still has significant cough no significant edema Has some pain in her arm Objective - Vital Signs Vital signs: Vital Signs - 12hr 09/30/18 09/30/18 09/30/18 03:44 10:00 11:05 Temperature 97.8 F 98.7 F Pulse Rate 81 78 Pulse Rate [ Anterior Bilateral Throughout] Respiratory 18 20 Rate Respiratory Rate [Anterior Bilateral Throughout] Blood Pressure 87/24 88/45 O2 Sat by Pulse 100 97 92 Oximetry 09/30/18 09/30/18 13:18 13:23 Temperature Pulse Rate Pulse Rate [ 90 87 Anterior Bilateral Throughout] Respiratory Rate Respiratory 17 16 Rate [Anterior Bilateral Throughout] Blood Pressure O2 Sat by Pulse Oximetry - General Appearance General appearance: obese EENT: ATNC, PERRL, mucous membranes moist Neck: no JVD Respiratory: Present: Clear to Ascultation, Decreased Breath Sounds Cardiology: S1S2 Gastrointestinal: normal, normoactive bowel sounds Integumentary: no rash Neurologic: alert and oriented x3, CN 3-12 intact Psychiatric: mood/affect appropriate - Lab 09/30/18 06:01 09/30/18 06:01 Most recent lab results Calcium 9.0 mg/dL (8.4-10.2) 09/30/18 06:01 Medications & Allergies - Medications Allergies/Adverse Reactions: Allergies Penicillins Allergy (Verified 09/28/18 19:56) Unknown Home Medications: Home Medications Medication Instructions Recorded Confirmed Last Taken Type Apixaban [Eliquis] 1 tab PO Q12HR 09/29/18 09/29/18 Unknown History Ascorbic Acid [Vitamin C] 500 mg PO QDAY 09/29/18 09/29/18 Unknown History Aspirin 325 mg PO QDAY 09/29/18 09/29/18 Unknown History Diclofenac Sodium 75 mg PO BID 09/29/18 09/29/18 Unknown History Midodrine [Proamatine] 10 mg PO TID 09/29/18 09/29/18 Unknown History Multivit with Calcium,Iron,Min 1 each PO DAILY 09/29/18 09/29/18 Unknown History [One Daily Women's] [place]-3/Dha/Epa/Fish Oil [[place] 3 1 tab PO DAILY 09/29/18 09/29/18 Unknown History 500 Softgel] Sevelamer Carbonate [Renvela] 2,400 mg PO TIDWM 09/29/18 09/29/18 Unknown History guaiFENesin/DEXTROMETHORPHAN 118 ml PO BID PRN 09/29/18 09/29/18 Unknown History [Children's Mucinex Cough Liq] Active Medications: Generic Name Dose Route Start Last Admin Trade Name Freq PRN Reason Stop Dose Admin Acetaminophen 650 mg 09/29/18 00:02 Tylenol PO Q4H PRN Pain MILD(1-3)/Fever >100.5/ALMEIDA Albumin Human 25 gm 09/29/18 11:11 Alburx 25% (Albumin) IV FLAVIA PRN Hypotension Albuterol/Ipratropium 1 ampul 09/29/18 08:00 09/30/18 13:21 Duoneb *Not For Prn Use* IH 1 ampul Q6HRT DINO Administration Apixaban 2.5 mg 09/30/18 22:00 Eliquis PO Q12HR [facility] Protocol Ascorbic Acid 500 mg 10/01/18 10:00 Vitamin C PO QDAY DINO Aspirin 325 mg 10/01/18 10:00 Aspirin PO QDAY DINO Benzonatate 200 mg 09/29/18 06:00 09/30/18 14:30 Tessalon Perles PO 200 mg Q8HR DINO Administration Diclofenac Sodium 75 mg 09/30/18 22:00 Nikolay Monk PO BID DINO Epoetin Eber 10,000 unit 09/29/18 11:11 05/31/19 16:12 Procrit IV 10,000 unit FLAVIA PRN Administration hemodialysis Famotidine 20 mg 09/29/18 10:00 09/30/18 10:15 Pepcid IV 20 mg QAM DINO Administration Guaifenesin 10 ml 09/30/18 13:31 Guaifenesin Dm Syrup PO BID PRN Cough Azithromycin 500 mg/ Sodium 250 mls @ 250 mls/hr 09/29/18 10:00 09/30/18 11:07 Chloride IV 10/03/18 10:59 250 mls/hr Q24HR DINO Administration Levofloxacin/Dextrose 500 mg in 100 mls @ 100 mls/hr 09/29/18 10:00 09/29/18 10:19 Levaquin 500mg/100ml IV 100 mls/hr Q48HR DINO Administration Sodium Chloride 100 mls @ 999 mls/hr 09/29/18 11:11 Nacl 0.9% IV FLAVIA PRN Hypotension Midodrine 10 mg 09/29/18 12:00 09/30/18 12:00 Proamatine PO 10 mg TID@0800,1200,1600 DINO Administration Miscellaneous Medication 1 each 10/01/18 10:00 Multivit With Calcium,Iron,Min [One Daily Women's] PO DAILY [facility] Miscellaneous Medication 1 tab 10/01/18 10:00 [place]-3/Dha/Epa/Fish Oil [[place] 3 500 Softgel] PO DAILY [facility] Ondansetron HCl 4 mg 09/29/18 00:02 Zofran IV Q8H PRN Nausea And Vomiting Sevelamer Carbonate 2,400 mg 09/30/18 17:00 Renvela PO TIDWM DINO Sodium Chloride 10 ml 09/29/18 10:00 09/30/18 10:15 Sodium Chloride Flush Syringe 10 Ml IV 10 ml BID DINO Administration Sodium Chloride 10 ml 09/29/18 00:02 Sodium Chloride Flush Syringe 10 Ml IV PRN PRN LINE FLUSH
[2018-09-30] MEDS: RENVELA PO SCH (16:27)
[2018-09-30] MEDS: ELIQUIS PO SCH (22:37)
[2018-09-30] MEDS: VOLTAREN DR PO SCH (22:38)
[2018-10-01] MEDS: DUONEB *Not for PRN Use IH SCH ×3 (01:59→14:25)
[2018-10-01] MEDS: TESSALON PERLES PO SCH ×2 (05:27→14:18)
[2018-10-01 08:26] LABS: Basophils # (Auto) 0.1 K/mm3 (0.0-0.1); Basophils % (Auto) 1.1 % (0.0-1.8); Eosinophils # (Auto) 0.1 K/mm3 (0.0-0.4); Eosinophils % (Auto) 1.3 % (0.0-4.3); Hematocrit 34.6 % (30.3-42.9); Hemoglobin 10.6 gm/dl (10.1-14.3); Lymphocytes # (Auto) 1.2 K/mm3 (1.2-5.4); Mean Corpuscular HGB Conc 31 % (30-34); Mean Corpuscular Volume 88 fl (79-97); Monocytes # (Auto) 0.6 K/mm3 (0.0-0.8); Platelet Count 266 K/mm3 (140-440); Red Blood Count 3.92 M/mm3 (3.65-5.03); Red Cell Distribution Width 17.9 % (13.2-15.2)
[2018-10-01 08:33] LABS: Albumin 3.4 g/dL (3.9-5); Calcium 9.1 mg/dL (8.4-10.2)
[2018-10-01] MEDS: PEPCID IV SCH (09:38)
[2018-10-01] MEDS: RENVELA PO SCH ×2 (09:38→14:19)
[2018-10-01] MEDS: LEVAQUIN 500MG/100ML 500 MG/100 ML BAG IV SCH (09:38)
[2018-10-01] MEDS: VOLTAREN DR PO SCH (09:39)
[2018-10-01] MEDS: PROAMATINE PO SCH ×2 (09:39→14:19)
[2018-10-01] MEDS: SODIUM CHLORIDE FLUSH SYRINGE 10 ML IV SCH (09:41)
[2018-10-01] MEDS: ELIQUIS PO SCH (09:41)
[2018-10-01] MEDS ORDERED: EPA PO SCH (10:00)
[2018-10-01] MEDS ORDERED: FISH OIL PO SCH ×2 (10:00)
[2018-10-01] MEDS ORDERED: DHA PO SCH (10:00)
[2018-10-01] MEDS ORDERED: THERAGRAN-M Tab PO SCH (10:00)
[2018-10-01] MEDS ORDERED: ASPIRIN PO SCH (10:00)
[2018-10-01] MEDS ORDERED: VITAMIN C PO SCH (10:00)
[2018-10-01] MEDS ORDERED: OMEGA PO SCH (10:00)
--- NOTE | 2018-10-01 10:37 | Consultation ---
History of Present Illness - Reason for Consult Consult date: 10/01/18 Rule out pulmonary TB Requesting physician: KERVIN STAPLES - History of Present Illness The patient is a 63-year-old female with hypertension, ESRD on hemodialysis for the last 12 years currently through a groin HD cath, DVT on anticoagulation with liquids, COPD on home oxygen presented to the emergency room after she coughed up blood. She also reports 1 episode of fever prior to this. Otherwise she reports a chronic cough. She was admitted to the hospital, started on empiric antibiotics. Due to concern for possible TB, she was placed on airborne precautions and infectious diseases was consulted. Mild WBC elevation on admission, now improved. She denies any weight loss. She denies any direct TB contact as such. Was born and brought up in [place], denies international travel. Denies homelessness or any history of incarceration. Review of Systems: General: no fevers,chills or rigors here HEENT: no new visual disturbance Respiratory: Chronic cough with one episode of hemoptysis Cardiovascular: No chest pain, syncope Gastrointestinal: No nausea, vomiting or diarrhea Genitourinary: No dysuria or hematuria Musculoskeletal: No new or worsening neck pain or back pain Neurologic: No headaches, seizures Hematologic: No easy bruising or bleeding Endocrine: No night sweats or acute weight loss Skin: negative for rash, jaundice Psychiatric: No suicidal or homicidal ideation Past History Past Medical History: cancer, diabetes, hypertension, hyperlipidemia, other (obesity) Past Surgical History: No surgical history Social history: no significant social history Family history: no significant family history (no h/o TB) Medications and Allergies Allergies Allergy/AdvReac Type Severity Reaction Status Date / Time Penicillins Allergy Unknown Verified 09/28/18 19:56 Home Medications Medication Instructions Recorded Confirmed Last Taken Type Apixaban [Eliquis] 1 tab PO Q12HR 09/29/18 09/29/18 Unknown History Ascorbic Acid [Vitamin C] 500 mg PO QDAY 09/29/18 09/29/18 Unknown History Aspirin 325 mg PO QDAY 09/29/18 09/29/18 Unknown History Diclofenac Sodium 75 mg PO BID 09/29/18 09/29/18 Unknown History Midodrine [Proamatine] 10 mg PO TID 09/29/18 09/29/18 Unknown History Multivit with Calcium,Iron,Min 1 each PO DAILY 09/29/18 09/29/18 Unknown History [One Daily Women's] [place]-3/Dha/Epa/Fish Oil [[place] 3 1 tab PO DAILY 09/29/18 09/29/18 Unknown History 500 Softgel] Sevelamer Carbonate [Renvela] 2,400 mg PO TIDWM 09/29/18 09/29/18 Unknown History guaiFENesin/DEXTROMETHORPHAN 118 ml PO BID PRN 09/29/18 09/29/18 Unknown History [Children's Mucinex Cough Liq] Active Meds: Active Medications Acetaminophen (Tylenol) 650 mg PO Q4H PRN PRN Reason: Pain MILD(1-3)/Fever >100.5/ALMEIDA Last Admin: 09/30/18 16:26 Dose: 650 mg Documented by: Albumin Human (Alburx 25% (Albumin)) 25 gm IV FLAVIA PRN PRN Reason: Hypotension Albuterol/Ipratropium (Duoneb *Not For Prn Use*) 1 ampul IH Q6HRT [facility] Last Admin: 10/01/18 08:00 Dose: 1 ampul Documented by: Apixaban (Eliquis) 2.5 mg PO Q12HR [facility]; Protocol Last Admin: 10/01/18 09:41 Dose: 2.5 mg Documented by: Ascorbic Acid (Vitamin C) 500 mg PO QDAY [facility] Last Admin: 10/01/18 09:43 Dose: 500 mg Documented by: Aspirin (Aspirin) 325 mg PO QDAY [facility] Last Admin: 10/01/18 09:41 Dose: 325 mg Documented by: Benzonatate (Tessalon Perles) 200 mg PO Q8HR [facility] Last Admin: 10/01/18 05:27 Dose: 200 mg Documented by: Diclofenac Sodium (Voltaren Dr) 75 mg PO BID [facility] Last Admin: 10/01/18 09:39 Dose: 75 mg Documented by: Epoetin Eber (Procrit) 10,000 unit IV FLAVIA PRN PRN Reason: hemodialysis Last Admin: 09/29/18 16:12 Dose: 10,000 unit Documented by: Famotidine (Pepcid) 20 mg IV QAM [facility] Last Admin: 10/01/18 09:38 Dose: 20 mg Documented by: Fish Oil (Fish Oil) 1,000 mg PO QDAY [facility] Last Admin: 10/01/18 09:41 Dose: 1,000 mg Documented by: Guaifenesin (Guaifenesin Dm Syrup) 10 ml PO BID PRN PRN Reason: Cough Last Admin: 09/30/18 16:26 Dose: 10 ml Documented by: Azithromycin 500 mg/ Sodium (Chloride) 250 mls @ 250 mls/hr IV Q24HR [facility] Stop: 10/03/18 10:59 Last Admin: 09/30/18 11:07 Dose: 250 mls/hr Documented by: Levofloxacin/Dextrose (Levaquin 500mg/100ml) 500 mg in 100 mls @ 100 mls/hr IV Q48HR [facility] Last Admin: 10/01/18 09:38 Dose: 100 mls/hr Documented by: Sodium Chloride (Nacl 0.9%) 100 mls @ 999 mls/hr IV FLAVIA PRN PRN Reason: Hypotension Midodrine (Proamatine) 10 mg PO TID@0800,1200,1600 [facility] Last Admin: 10/01/18 09:39 Dose: 10 mg Documented by: Multivitamins/Minerals (Theragran-M Tab) 1 each PO QDAY [facility] Last Admin: 10/01/18 09:42 Dose: 1 each Documented by: Ondansetron HCl (Zofran) 4 mg IV Q8H PRN PRN Reason: Nausea And Vomiting Sevelamer Carbonate (Renvela) 2,400 mg PO TIDWM [facility] Last Admin: 10/01/18 09:38 Dose: 2,400 mg Documented by: Sodium Chloride (Sodium Chloride Flush Syringe 10 Ml) 10 ml IV BID [facility] Last Admin: 10/01/18 09:41 Dose: 10 ml Documented by: Sodium Chloride (Sodium Chloride Flush Syringe 10 Ml) 10 ml IV PRN PRN PRN Reason: LINE FLUSH Physical Examination - Physical Exam Narrative exam: Physical Exam: Constitutional: Alert, cooperative. No acute distress. morbidly obese Head, Ears, Nose: Normocephalic, atraumatic. External ears, nose normal Eyes: Conjunctivae/corneas clear. No icterus. No ptosis. Neck: Supple, no meningeal signs Oral: no thrush Cardiovascular: S1, S2 normal. Respiratory: Good air entry, clear to auscultation bilaterally GI: Soft, non-tender; bowel sounds normal. No peritoneal signs Musculoskeletal: No pedal edema, no cyanosis. Groin HD cath + Skin: No rash or abscess Hem/Lymphatic: No palpable cervical or supraclavicular nodes. No lymphangitis Psych: Mood ok. Affect normal Neurological: Awake, alert, oriented. No gross abnormality - Constitutional Vitals: Vital Signs Temp Pulse Resp BP Pulse Ox 97.7 F 76 19 80/43 93 10/01/18 05:22 10/01/18 08:00 10/01/18 08:00 10/01/18 05:22 10/01/18 08:01 Temperature -Last 24 Hours Temperature 97.7 F Temperature 98.1 F Temperature 98.5 F Temperature 98.7 F Results - Labs CBC & Chem 7: 10/01/18 07:03 10/01/18 07:03 Labs: Abnormal lab results 10/01/18 10/01/18 Range/Units 07:03 07:03 MCH 27 L (28-32) pg RDW 17.9 H (13.2-15.2) % Grant % (Auto) 8.0 H (0.0-7.3) % Seg Neutrophils % 74.6 H (40.0-70.0) % BUN 27 H (7-17) mg/dL Creatinine 7.0 H (0.7-1.2) mg/dL Alkaline Phosphatase 153 H (35-129) units/L Total Protein 8.5 H (6.3-8.2) g/dL Albumin 3.4 L (3.9-5) g/dL - Imaging and Cardiology Chest x-ray: report reviewed, image reviewed (Chest x-ray suboptimal, cannot evaluate for any cavitary disease) Assessment and Plan Cultures: 09/28/2018 blood culture: No growth Multiple AFB sputum cultures in process. A/P: 63-year-old female with hypertension, ESRD on hemodialysis for the last 12 years currently through a groin HD cath, DVT on anticoagulation with liquids, COPD on home oxygen admitted with: 1) Hemoptysis, probably secondary to community-acquired pneumonia and bronchitis especially in the setting of anticoagulation: Very low epidemiologic risk for tuberculosis. Also, acute process and no B symptoms as such. Continue pneumonia treatment. Get CXR PA and lateral. 2) ESRD on hemodialysis: renally dose antibiotics 3) Morbid obesity: weight loss recommended. 4) Chronic resp failure: on home oxygen. Recs: Discontinued azithromycin Continue levofloxacin renally adjusted, complete total 7 days Follow-up AFB sputum smears very low epidemiologic risk for tuberculosis Ordered Chest x-ray PA and lateral for better evaluation of the pulmonary parenchyma D/W Dr. Staples. Karl Turpin MD [facility], [place] C: [phone] O: [phone] F: [phone]
--- NOTE | 2018-10-01 12:06 | XRay Report ---
PROCEDURE: XR CHEST ROUTINE 2V TECHNIQUE: PA and lateral chest radiographs were obtained. HISTORY: hemoptysis. COMPARISONS: Chest x-ray September 28, 2018. FINDINGS: Positioning improved compared to prior study. Heart size normal. No pneumothorax. No sizable effusion . Generalized interstitial prominence. Patchy left-sided airspace disease. Right upper extremity sten ts noted. No acute bony abnormality. IMPRESSION: Allowing for rotation, no significant interval change. Interstitial prominence and patch y left-sided airspace disease. This document is electronically signed by Jeffrey Austin MD., October 01 2018 01:04:11 PM ET
--- NOTE | 2018-10-01 12:46 | Discharge Summary ---
Providers - Providers Date of Admission: 09/28/18 23:47 Date of discharge: 10/01/18 Attending physician: KERVIN STAPLES 09/29/18 05:05 Consult to Physician [CONS] Routine Comment: Consulting Provider: JUDITH OLIVAS Physician Instructions: Reason For Exam: HD management 09/30/18 12:58 Consult to Physician [CONS] Routine Comment: Consulting Provider: ANDREW COLÓN Physician Instructions: Reason For Exam: rule out pulmonary tuberculosis 10/01/18 12:21 Physical Therapy Evaluation and Treat [CONS] Routine Comment: Reason For Exam: weakness 10/01/18 12:22 Occupational Therapy Evaluate and Treat [CONS] Routine Comment: Reason For Exam: weakness Primary care physician: JAS BAH Hospitalization Condition: Stable Pertinent studies: CXR x2 and Soft tissue neck Hospital course: (1) Bilateral pneumonia Current Visit: Yes Status: Acute Plan to address problem: Possible community-acquired pneumonia On Levaquin Isolation Rule out pulmonary tuberculosis ID consult to be requested Nebulizer treatments Hemoptysis, probably secondary to community-acquired pneumonia and bronchitis especially in the setting of anticoagulation: Very low epidemiologic risk for tuberculosis. Also, acute process and no B symptoms as such. Continue pneumonia treatment. CXR today:Allowing for rotation, no significant interval change. Interstitial prominence and patchy left-sided airspace disease. Will D/c on oral abx (2) ESRD on dialysis Current Visit: Yes Status: Chronic Plan to address problem: Hemodialysis to continue (3) Morbid obesity Current Visit: No Status: Chronic Plan to address problem: Patient to follow with the bariatric surgery as outpatient (4) Hypotension Current Visit: Yes Status: Chronic Qualifiers: Hypotension type: unspecified hypotension type Qualified Code(s): I95.9 - Hypotension, unspecified Plan to address problem: On midodrine (5) Anticoagulation adequate Current Visit: Yes Status: Chronic Plan to address problem: On Eliqius for prevention of DVTs and PEs (6) Hypokalemia Current Visit: Yes Status: Acute Plan to address problem: Supplemented Corrected Disposition: DC-01 TO HOME OR SELFCARE - Discharge Diagnoses (1) Bilateral pneumonia Status: Acute (2) ESRD on dialysis Status: Chronic (3) Morbid obesity Status: Chronic (4) Hypotension Status: Chronic Qualifiers: Hypotension type: unspecified hypotension type Qualified Code(s): I95.9 - Hypotension, unspecified (5) Anticoagulation adequate Status: Chronic (6) Hypokalemia Status: Acute (7) DVT prophylaxis Status: Acute Core Measure Documentation - Palliative Care Palliative Care/ Comfort Measures: Not Applicable - Core Measures Any of the following diagnoses?: none Exam - Constitutional Vitals: Temp Pulse Resp BP Pulse Ox 97.7 F 76 18 80/43 93 10/01/18 05:22 10/01/18 08:00 10/01/18 08:25 10/01/18 05:22 10/01/18 08:01 General appearance: Present: no acute distress, well-nourished - EENT Eyes: Present: PERRL ENT: hearing intact, clear oral mucosa - Neck Neck: Present: supple, normal ROM - Respiratory Respiratory effort: normal Respiratory: bilateral: CTA - Cardiovascular Heart rate: 78 Rhythm: regular Heart Sounds: Present: S1 & S2. Absent: rub, click - Extremities Extremities: no ischemia, pulses intact, pulses symmetrical, No edema Peripheral Pulses: within normal limits - Abdominal General gastrointestinal: Present: soft, non-tender, non-distended, normal bowel sounds Female genitourinary: Present: normal - Integumentary Integumentary: Present: clear, warm, dry - Musculoskeletal Musculoskeletal: gait normal, strength equal bilaterally - Psychiatric Psychiatric: appropriate mood/affect, intact judgment & insight - Neurologic Neurologic: CNII-XII intact, moves all extremities - Allied Health Allied health notes reviewed: nursing, case management Plan Activity: no restrictions Diet: renal Follow up with: JAS BAH MD [Primary Care Provider] - 3-5 Days JUAN ESTES MD [Staff Physician] - 7 Days
[2018-10-01 14:10] VITALS: BP 99/30
--- NOTE | 2018-10-01 16:59 | Progress Note ---
Assessment and Plan - Patient Problems (1) ESRD on hemodialysis Status: Chronic Plan to address problem: End-stage renal disease on hemodialysis Dialysis access: Left thigh PermCath Next dialysis Tuesday (2) Pneumonia Status: Acute Plan to address problem: Pneumonia on precautions to rule out tuberculosis Continue antibiotics (3) Anemia Status: Acute Plan to address problem: Mild anemia secondary to renal failure hemoglobin 10 g per DL Monitor CBC. (4) Hypokalemia Status: Acute Plan to address problem: Hypokalemia K: 3.4 - mild -no need to replace. Subjective Principal diagnosis: bilateral pneumonia, end-stage renal disease on dialysis Interval history: 63-year-old lady with estimated orders on hemodialysis Tuesday at [facility] via a left thigh tunneled catheter admitted with complaints of cough for a month currently on work up to exclude tuberculosis She is doing well today and denies any orthopnea PND Still has significant cough no significant edema Plan for discharge today. Objective - Vital Signs Vital signs: Vital Signs - 12hr 10/01/18 10/01/18 10/01/18 05:22 08:00 08:01 Temperature 97.7 F Pulse Rate 79 Pulse Rate [ 76 Anterior Bilateral Throughout] Respiratory 20 Rate Respiratory 19 Rate [Anterior Bilateral Throughout] Blood Pressure 80/43 O2 Sat by Pulse 92 93 Oximetry 10/01/18 10/01/18 10/01/18 08:25 14:00 14:07 Temperature Pulse Rate 52 L Pulse Rate [ 78 Anterior Bilateral Throughout] Respiratory 18 20 Rate Respiratory 17 Rate [Anterior Bilateral Throughout] Blood Pressure 99/30 O2 Sat by Pulse 100 Oximetry 10/01/18 10/01/18 14:10 14:26 Temperature 98.7 F Pulse Rate Pulse Rate [ 79 Anterior Bilateral Throughout] Respiratory Rate Respiratory 18 Rate [Anterior Bilateral Throughout] Blood Pressure O2 Sat by Pulse Oximetry - General Appearance General appearance: well-developed, obese EENT: ATNC, PERRL, mucous membranes moist Neck: no JVD Respiratory: Present: Decreased Breath Sounds Cardiology: regular, S1S2 Gastrointestinal: normal, normoactive bowel sounds Integumentary: no rash Neurologic: CN 3-12 intact Psychiatric: mood/affect appropriate - Lab 10/01/18 07:03 10/01/18 07:03 Most recent lab results Calcium 9.1 mg/dL (8.4-10.2) 10/01/18 07:03 Medications & Allergies - Medications Allergies/Adverse Reactions: Allergies Penicillins Allergy (Verified 09/28/18 19:56) Unknown Home Medications: Home Medications Medication Instructions Recorded Confirmed Last Taken Type Ascorbic Acid [Vitamin C] 500 mg PO QDAY 09/29/18 09/29/18 Unknown History Aspirin 325 mg PO QDAY 09/29/18 09/29/18 Unknown History Diclofenac Sodium 75 mg PO BID 09/29/18 09/29/18 Unknown History Midodrine [Proamatine] 10 mg PO TID 09/29/18 09/29/18 Unknown History Multivit with Calcium,Iron,Min 1 each PO DAILY 09/29/18 09/29/18 Unknown History [One Daily Women's] [place]-3/Dha/Epa/Fish Oil [[place] 3 1 tab PO DAILY 09/29/18 09/29/18 Unknown History 500 Softgel] Sevelamer Carbonate [Renvela] 2,400 mg PO TIDWM 09/29/18 09/29/18 Unknown History Apixaban [Eliquis] 2.5 mg PO Q12HR tablet 10/01/18 Unknown Rx Epoetin Eber 10,000 Unit [Procrit] 10,000 unit IV FLAVIA PRN vial 10/01/18 Unknown Rx Ipratropium/Albuterol Sulfate 1 ampul IH Q6HRT ampul.neb 10/01/18 Unknown Rx [DUONEB *Not for PRN Use*] guaiFENesin/DEXTROMETHORPHAN 118 ml PO BID PRN #180 ml 10/01/18 Unknown Rx [Children's Mucinex Cough Liq] levoFLOXacin [Levaquin] 750 mg PO Q48H 14 Days #7 tablet 10/01/18 Unknown Rx
== END 2018-10-01 16:19 | disposition home or self-care (01) | DRG 177 ==
LOC: ED 19:41 → 3A 23:47
PROVIDERS: ADMIT Internal Medicine; ATTEND Internal Medicine
PROC: 5A1D70Z Performance of Urinary Filtration, Intermittent, Less than 6 Hours Per Day (ICD-10-PCS; principal; 2018-09-29)
DX: A15.0 Tuberculosis of lung (principal); N18.6 End stage renal disease; I12.0 Hypertensive chronic kidney disease with stage 5 chronic kidney disease or end stage renal disease; J96.10 Chronic respiratory failure, unspecified whether with hypoxia or hypercapnia; Z68.41 Body mass index [BMI] 40.0-44.9, adult; J18.9 Pneumonia, unspecified organism; J40 Bronchitis, not specified as acute or chronic; I95.9 Hypotension, unspecified; E87.6 Hypokalemia; Z99.2 Dependence on renal dialysis; E66.01 Morbid (severe) obesity due to excess calories; D63.1 Anemia in chronic kidney disease; M19.90 Unspecified osteoarthritis, unspecified site; R26.89 Other abnormalities of gait and mobility; K21.9 Gastro-esophageal reflux disease without esophagitis; E21.3 Hyperparathyroidism, unspecified; Z86.718 Personal history of other venous thrombosis and embolism; Z79.01 Long term (current) use of anticoagulants; Z99.81 Dependence on supplemental oxygen; Z88.0 Allergy status to penicillin; Z85.9 Personal history of malignant neoplasm, unspecified; Z79.82 Long term (current) use of aspirin; Z79.899 Other long term (current) drug therapy
CPT/HCPCS: 36415; 70360; 71045; 71046; 80048; 80053; 80074; 85025; 85610; 85730; 87040; 88112; 88312; 94640; 94760; 96374; G0378; J0456; J0696; J0885; J1644; J1956; J7050